=== PATIENT | male | born 1990 | race Caucasian/White ===

== ENCOUNTER 2017-09-23 11:45 | Emergency (ER) | payer BC ==
[2017-09-23 12:04] VITALS: BP 105/66; PULSE 61; TEMP 98.4; BMI 25.0
[2017-09-23] MEDS ORDERED: IBUPROFEN 600 MG TABLET (FP) PO ONE ×2 (12:54→12:58)
--- NOTE | 2017-09-23 12:59 | PDOC ---
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 There was no LOC although patient states felt dazed for a minute. Since that time has had tenderness to the area, without drainage from nose or ears, no mental status changes, no other injury. States used some Tylenol and some ice packs last night with some minimal resolved. This incident occurred approximately 24 hours ago. 09/23/17 14:36 Occurred: reports: yesterday Severity: reports: mild, moderate Pain Location: reports: head Method of Injury: Yes: direct blow Modifying Factors: improves with: cold therapy Loss of Consciousness: no loss of consciousness Associated Symptoms (Fall): headache, lightheadedness Past History - Past Medical History Allergies/Adverse Reactions: Allergies Allergy/AdvReac Type Severity Reaction Status Date / Time shellfish derived Allergy Verified 09/23/17 11:56 Home Medications: Ambulatory Orders Aspirin [ASA -] 81 mg PO DAILY 09/23/17 Cholecalciferol (Vitamin D3) [Vitamin D3] 5,000 unit PO ASDIR 09/23/17 COPD: No - Immunization History Immunization Up to Date: Yes - Suicide/Smoking/Psychosocial Hx Smoking History: Never smoked Have you smoked in the past 12 months: No Number of Cigarettes Smoked Daily: 0 Cigars Per Day: 0 Information on smoking cessation initiated: No Hx Alcohol Use: No Drug/Substance Use Hx: No Substance Use Type: Alcohol Review of Systems - Review of Systems Able to Perform ROS?: Yes Is the patient limited Setswana proficient: Yes Constitutional: Yes: Symptoms Reported, Malaise HEENTM: Yes: Symptoms Reported, See HPI, Other (pain to ). No: Eye Pain, Blurred Vision, Tearing, Nose Congestion Respiratory: Yes: See HPI. No: Symptoms reported Musculoskeletal: Yes: See HPI. No: Symptoms Reported, Neck Pain Integumentary: Yes: Symptoms Reported, See HPI, Bruising Neurological: Yes: Symptoms reported, See HPI All Other Systems: Reviewed and Negative *Physical Exam - Vital Signs Last Vital Signs Temp Pulse Resp BP Pulse Ox 98.4 F 61 16 105/66 100 09/23/17 11:57 09/23/17 11:57 09/23/17 11:57 09/23/17 11:57 09/23/17 11:57 - Physical Exam General Appearance: Yes: Nourished, Appropriately Dressed, Apparent Distress, Mild Distress HEENT: positive: MUSA, Normal ENT Inspection, TMs Normal (no hemotympanum, no drainage from nose or ears, no evidence of skull fracture), Nasal Congestion, Other (contusion noted to the left parietal crown of head approximately 3 cm, no crepitus or step-offs, is tender to touch but not boggy.). negative: Rhinorrhea, Sinus Tenderness Neck: positive: Supple, Other. negative: Tender Respiratory/Chest: positive: Lungs Clear, Normal Breath Sounds Extremity: positive: Normal Inspection, Normal Range of Motion Integumentary: positive: Normal Color, Dry, Warm Neurologic: positive: consumer analyst II-XII NML intact, Fully Oriented, Alert, Normal Mood/ Affect, Normal Response, Motor Strength 5/5 Progress Note - Progress Note Progress Note: Superficial head injury, post 24 hours without significant evidence of serious injury. Mild concussive and reviewed treatment for same. *DC/Admit/Observation/Transfer Diagnosis at time of Disposition: Head injury, acute Qualifiers: Encounter type: initial encounter Qualified Code(s): S09.90XA - Unspecified injury of head, initial encounter Contusion Qualifiers: Encounter type: initial encounter Contusion area: head Contusion of head detail : scalp Qualified Code(s): S00.03XA - Contusion of scalp, initial encounter - Discharge Dispostion Disposition: HOME Condition at time of disposition: Stable Admit: No - Referrals - Patient Instructions Printed Discharge Instructions: DI for Contusion, DI for Closed Head Injury Additional Instructions: Rest, avoid strenuous activity or exercise for the next 24-48 hours May use ice on contusions as needed. May use Tylenol or Motrin for pain relief Watch and seek evaluation for changes in behavior including crankiness, inconsolability, quietness/ sleepiness that is inappropriate, tiredness that is inappropriate, watch for worsening and changes of behavior. Seek immediate evaluation/return to emergency department for vomiting, mental status changes, pain that's out of proportion , bloody drainage from ears or nose. Followup with private physician as needed in one to 2 days for reevaluation - Post Discharge Activity Forms/Work/School Notes: Back to Work
== END 2017-09-23 13:13 | disposition home or self-care (01) ==
LOC: JERFT 11:45
DX: S09.90XA Unspecified injury of head, initial encounter (principal); S00.03XA Contusion of scalp, initial encounter; W20.8XXA Other cause of strike by thrown, projected or falling object, initial encounter; Y93.89 Activity, other specified; Y92.9 Unspecified place or not applicable
CPT/HCPCS: 99281-25